=== PATIENT | male | born 1985 | race African-American/Black ===

== ENCOUNTER 2016-12-28 01:01 | Emergency (ER) | payer OTHER ==
[~2016-12-28] VITALS: Ht 172.7 cm; Wt 68.0 kg
[2016-12-28 01:03] VITALS: BP 124/64
== END 2016-12-28 04:30 | disposition left against medical advice (07) ==
LOC: ER 01:10
DX: Z53.21 Procedure and treatment not carried out due to patient leaving prior to being seen by health care provider (principal)